=== PATIENT | male | born 1990 | race Caucasian/White ===

== ENCOUNTER 2024-10-24 07:46 | Day surgery (SDC) | payer BC ==
[2024-10-23 14:57] LABS: Anion Gap 7.8 mEq/L (5.0-15.0); Potassium 3.8 mEq/L (3.5-5.1)
[2024-10-24] MEDS: Ringers Lactate 1,000 ML IV ONE (08:22)
[2024-10-24] MEDS ORDERED: MIDAZOLAM HCL 2 MG/2 ML INJ ONE (09:17)
[2024-10-24] MEDS ORDERED: propofoL 200 MG/20 ML VIAL IV ONE (09:17)
[2024-10-24] MEDS ORDERED: FENTANYL CITR 250 MCG/5 ML ONE (09:17)
[2024-10-24] MEDS ORDERED: ROCURONIUM 50 MG/5 ML VIAL IV ONE (09:21)
[2024-10-24] MEDS ORDERED: LIDOCAINE 2% MPF 5 ML VIAL ONE (09:21)
[2024-10-24] MEDS ORDERED: ONDANSETRON 4 MG/2 ML VIAL ONE (09:47)
[2024-10-24] MEDS ORDERED: dexAMETHasone 10 MG/ML VIAL ONE (09:47)
[2024-10-24] MEDS: CEFAZOLIN SODIUM 2 GM/VIAL ONE (09:53)
[2024-10-24] MEDS: LIDOCAINE HCL/EPINEPHRINE 20 ML MDV ONE (09:57)
[2024-10-24] MEDS ORDERED: GLYCOPYRROLATE 0.2 MG/ML SYR ONE (10:50)
[2024-10-24] MEDS ORDERED: NEOSTIGMINE 1 MG/ML -10 ML VIAL ONE (10:51)
--- NOTE | 2024-10-24 11:13 | P.OP ---
Preoperative diagnosis: RIGHT Inguinal Hernia Postoperative diagnosis: RIGHT Inguinal Hernia Primary procedure: Open RIGHT Inguinal Hernia Repair with mesh Anesthesia: GETA + Local Estimated blood loss: <5cc Specimen: Hernia Sack and Contents Findings: RIGHT inguinal Hernia Complications: None Implants: Bard Perfix Medium Plug and Patch Mesh System Transferred to: Recovery Room Condition: Good
[2024-10-24] MEDS: HYDROCODONE/APAP 10/325 TAB ONE (12:41)
--- NOTE | 2024-10-24 13:21 | OP ---
Date of Procedure: 10/24/2024 Surgeon: Breezy White MD, Preoperative Diagnosis: Right inguinal hernia. Postoperative Diagnosis: Right inguinal hernia. Procedure Performed: Open right inguinal hernia repair with mesh. Anesthesia: General endotracheal plus local, 1% lidocaine with epinephrine. Estimated Blood Loss: Less than 5 cc. Specimen: Hernia sac and contents. Findings: Right inguinal hernia. Complications: None. Implants: Bard PerFix medium plug and patch hernia repair system. Disposition: The patient was transferred to recovery room in good condition. Procedure In Detail: After informed consent was obtained, the patient was brought to the operating r oom, prepped and draped in usual sterile fashion. After adequate anesthesia was achieved, anesthetiz ing the area of the right inguinal region down to the subcutaneous tissues. After appropriately anes thetizing the skin, I made an inguinal incision with a 15 blade down to subcutaneous tissues, ultimclayton hurtado dissecting down through Camper's fat and Ad fascia to expose the external oblique aponeurosis . This was opened sharply with a 15 blade and then opened in its entirety with Metzenbaum scissors a long the course of the spermatic cord and structures. The spermatic cord and structures were then en circled with a David drain. At this point, I proceeded to dissect the hernia sac off the spermatic cord, which was in close apposition to the spermatic cord structures. I ultimately removed the yaron ia sac off the spermatic cord and structures and then ligating and removing the hernia sac at this po int, sending off to the back table using combination of blunt and electrocautery dissection. I ultim ately closed the hernia sac at this point using interrupted 3-0 Vicryl sutures and I placed it back i n the preperitoneal space and digitally dissected an area for placement of the hernia plug system in the preperitoneal space. I then brought in the medium Bard PerFix plug at this point and placed it i nto the preperitoneal space. I secured it circumferentially around using 2-0 PDS sutures without juan dence of complication. The area was copiously irrigated. I then deployed the mesh system down on th e pubic tubercle on the medial aspect of appropriately sizing it. It was secured to the undersurface of the inguinal ligament and the internal oblique aponeurosis circumferentially around using interru pted 2-0 PDS sutures. I reconstituted the deep inguinal ring with the same said 2-0 PDS sutures. At this point, the tails were trimmed off the mesh. I then irrigated the area once again and dried at this point. I closed the external oblique aponeurosis using a running 3-0 Vicryl suture with good ap position of the tissue. I then closed the Camper's fat and Ad fascia en bloc using the same set of 3-0 Vicryl suture. Deep dermal plane was also closed with 3-0 Vicryl suture in an interrupted fas hion and the skin was closed with a 4-0 Monocryl in a running fashion. Dermabond placed over top. T he patient tolerated procedure without incident or complication, and transferred to PACU in good cond ition. All counts were correct at the end of the case. ROBIN/BENJY Voice ID: [id number] Report ID: [id number]
[2024-10-24 14:15] VITALS: BP 134/68; TEMP 98.3; O2SAT 97
== END 2024-10-24 13:45 | disposition home or self-care (01) ==
LOC: OR 07:46
PROVIDERS: ATTEND Surgery
PROC: 0YU50JZ Supplement Right Inguinal Region with Synthetic Substitute, Open Approach (ICD-10-PCS; principal; 2024-10-24 09:30)
DX: K40.90 Unilateral inguinal hernia, without obstruction or gangrene, not specified as recurrent (principal)
CPT/HCPCS: 80048; 36415; 88302; 49505; J2704; J2710; J2003; J2250; J3010; J1100; J2405; J7120